=== PATIENT | female | born 1960 | race Caucasian/White ===

== ENCOUNTER → 2016-07-23 | Outpatient (CLI) | payer OTHER ==
[~2016-07-23] MED LIST: AMT25 PO; BACL10TA PO; METO1TAB69 PO; OMEP40CA PO
--- NOTE | 2016-07-23 14:38 | MAMMOGRAPHY REPORT ---
UNILATERAL RIGHT DIGITAL DIAGNOSTIC MAMMOGRAM TOMOSYNTHESIS WITH CAD AND TARGETED RIGHT ULTRASOUND: 07/23/2016 CLINICAL HISTORY: 55-year-old woman presents for follow-up of a benign-appearing mass with associate d calcification in the lower inner, approximate 5:00 right breast, thought to correlate with a compl icated cyst on ultrasound. TECHNIQUE: Right breast 2-D digital, tomosynthesis and spot magnification views were obtained. Curr ent study was also evaluated with a Computer Aided Detection (CAD) system. COMPARISON: Comparison is made to exams dated: 12/27/2015 mammogram, 12/27/2015 ultrasound, 12/22/2015 m ammogram, 08/26/2014 mammogram, and 07/29/2012 mammogram - [facility]. BREAST COMPOSITION: There are scattered areas of fibroglandular density in the right breast. FINDINGS: There is persistence of a well-circumscribed low-density lobulated 8.7 x 9.0 x 6.0 mm mass with associated faint punctate, possibly layering microcalcification in the approximate 5:00 anteri or right breast. No other new suspicious mass, architectural distortion or new cluster of microcalc ifications are identified. The grouped faint punctate microcalcifications associated with the mass appear to layer on the spot magnification ML view and are not changed in number when comparing to th e prior spot magnification views. Real-time high-resolution sonographic evaluation was performed in the 7:00 through 3:00 axis of the inferior right breast. In the 6:00 breast, 2 cm from the nipple, a lobulated cystic mass with few t hin internal septations and internal punctate reflectors representing calcifications is again identi fied. It measures 9.0 x 3.5 x 7.9 mm and has not significantly changed comparing to the prior ultra sound at which time it measured 8.3 x 3.6 x 8.0 mm. No other discrete solid or cystic mass is seen in the lower inner quadrant of the right breast. Despite slightly different location mammographical ly due to versus sonographically (5:00 versus 6:00 axes), this is thought to be due to differences i n positioning with the patient supine during ultrasound, as the size, shape and associated calcifica tions correlate well with the mammographic mass. Therefore it is considered benign and no further f ollow-up is needed at this time. IMPRESSION: ACR BI-RADS CATEGORY 2: BENIGN, TARGETED ULTRASOUND ACR BI-RADS CATEGORY 2: BENIGN There is a stable 9 mm cystic mass with a few thin internal septations and calcifications, compatibl e with fibrocystic change within the 6:00 right breast. This is considered benign. There is no james mographic or targeted sonographic evidence of malignancy within the right breast. Return to annual ammogram screening schedule is recommended. The patient has been verbally notified of the results. Approximately 10% of breast cancers are not detected with mammography. A negative mammographic repor t should not delay biopsy if a clinically suggestive mass is present. Heena Sevilla M.D. ay/:07/23/2016 12:42:40 Route Manager: Trang KHANNA(Tamra)(Suzy), [facility] letter sent: Normal 1/2 BI-RADS Code: ACR BI-RADS Category 2: Benign Ultrasound BI-RADS: ACR BI-RADS Category 2: Benign
== END | disposition home or self-care (01) ==
LOC: C.MAMM 10:44
PROVIDERS: ATTEND Family Medicine
DX: R92.2 Inconclusive mammogram (principal); N63 Unspecified lump in breast; R92.0 Mammographic microcalcification found on diagnostic imaging of breast

== ENCOUNTER → 2016-09-06 | Outpatient (CLI) | payer OTHER ==
[~2016-09-06] MED LIST changes: +METO100T44 PO; -METO1TAB69 PO
[2016-09-06 12:52] LABS: BLOOD UREA NITROGEN 16 mg/dl (7-18); BUN/CREATININE RATIO 17.6 (10-20); CALCIUM 9.3 mg/dl (8.5-10.1); CARBON DIOXIDE 29 mmol/L (21-32); CHLORIDE 107 mmol/L (98-107); CHOLESTEROL 179 mg/dl (0-200); GLUCOSE 104 mg/dl (70-99); SODIUM 143 mmol/L (136-145)
[2016-09-06 13:12] LABS: CHOLESTEROL/HDL RATIO 4.5; HDL CHOLESTEROL 40 mg/dl; LDL CHOLESTEROL CALCULATED 99 mg/dl; TRIGLYCERIDES 202 mg/dl (0-150); VERY LOW DENSITY LIPOPROT CALC 40 mg/dl
== END ==
LOC: C.LAB1850 10:52
PROVIDERS: ATTEND Family Medicine
DX: Z11.59 Encounter for screening for other viral diseases (principal); M79.7 Fibromyalgia; E78.5 Hyperlipidemia, unspecified; E55.9 Vitamin D deficiency, unspecified

== ENCOUNTER → 2016-12-25 | Outpatient (CLI) | payer OTHER ==
[~2016-12-25] MED LIST changes: -METO100T44 PO; +METO1TAB69 PO
--- NOTE | 2016-12-26 13:41 | MAMMOGRAPHY REPORT ---
BILATERAL DIGITAL SCREENING MAMMOGRAM TOMOSYNTHESIS WITH CAD: 12/25/2016 CLINICAL HISTORY: Routine screening. Patient has no complaints. TECHNIQUE: Breast tomosynthesis in addition to standard 2D mammography was performed. Current study was also evaluated with a Computer Aided Detection (CAD) system. COMPARISON: Comparison is made to exams dated: 07/23/2016 mammogram, 12/27/2015 mammogram, 12/22/2015 ma mmogram, 08/26/2014 mammogram, 08/03/2013 mammogram, and 07/29/2012 mammogram - [facility]. BREAST COMPOSITION: There are scattered areas of fibroglandular density in both breasts. FINDINGS: There is stable focal asymmetry in the lateral posterior left breast, and a stable 8 mm nod ular asymmetry in the slightly medial right breast on the CC view. Stable punctate microcalcificatio ns in the lateral left breast and a benign rim calcification in the medial right breast. No new susp icious mass, architectural distortion or cluster of microcalcifications is seen. IMPRESSION: ACR BI-RADS CATEGORY 1: NEGATIVE There is no mammographic evidence of malignancy. A 1 year screening mammogram is recommended. The pa tient will receive written notification of the results. Approximately 10% of breast cancers are not detected with mammography. A negative mammographic report should not delay biopsy if a clinically suggestive mass is present. Heena Sevilla M.D. ay/:12/25/2016 17:11:02 Weather Forecaster: Symone KHANNA(Tamra)(Suzy)(BD), [facility] letter sent: Normal 1/2 BI-RADS Code: ACR BI-RADS Category 1: Negative
== END | disposition home or self-care (01) ==
LOC: C.MAMM 13:15
PROVIDERS: ATTEND Family Medicine
DX: Z12.31 Encounter for screening mammogram for malignant neoplasm of breast (principal)

== ENCOUNTER → 2017-09-18 | Outpatient (CLI) | payer OTHER ==
[~2017-09-18] MED LIST changes: +METO100T44 PO; -METO1TAB69 PO
== END | disposition home or self-care (01) ==
LOC: C.PATHSPEC 17:58
PROVIDERS: ATTEND Dermatology
DX: L82.1 Other seborrheic keratosis (principal)

== ENCOUNTER → 2017-12-26 | Outpatient (CLI) | payer OTHER ==
--- NOTE | 2017-12-26 14:57 | MAMMOGRAPHY REPORT ---
BILATERAL DIGITAL SCREENING MAMMOGRAM TOMOSYNTHESIS WITH CAD: 12/26/2017 CLINICAL HISTORY: Routine screening. TECHNIQUE: The study was acquired using full field digital technology and interpreted from soft copy. Breast tomosynthesis in addition to standard 2D mammography was performed. Current study was also ev aluated with a Computer Aided Detection (CAD) system. COMPARISON: Comparison is made to exams dated: 12/25/2016 mammogram, 07/23/2016 mammogram, 12/22/2015 ma mmogram, 08/26/2014 mammogram, 08/03/2013 mammogram, and 07/23/2016 ultrasound - [facility]ter. BREAST COMPOSITION: There are scattered areas of fibroglandular density in both breasts. FINDINGS: No suspicious masses, calcifications, or areas of architectural distortion are noted in either breast . There has been no significant interval change compared to prior exams. Bilateral asymmetries are s table. IMPRESSION: ACR BI-RADS CATEGORY 2: BENIGN There is no mammographic evidence of malignancy. A 1 year screening mammogram is recommended.( [id number]) The patient will receive written notification of the results. Some breast cancers are not detected with mammography. A negative mammographic report should not khari y biopsy if a clinically suggestive mass is present. Sylwia Mcpherson M.D. ah/:12/26/2017 13:34:07 Product Management Specialist: RT Kavitha(Tamra)(M), [facility] letter sent: Normal 1/2 BI-RADS Code: ACR BI-RADS Category 2: Benign
== END | disposition home or self-care (01) ==
LOC: C.MAMM 10:39
PROVIDERS: ATTEND Family Medicine
DX: Z12.31 Encounter for screening mammogram for malignant neoplasm of breast (principal)